=== PATIENT | female | born 1995 ===

== ENCOUNTER 2018-11-10 00:02 | Inpatient (IN) | payer MEDICAID ==
[2018-11-10 01:11] VITALS: BMI 33.5
[2018-11-10] MEDS ORDERED: Lactated Ringer's 1,000 ML IV ONE (01:11)
[2018-11-10] MEDS ORDERED: Oxytocin 30 UNIT 30 UNITS/500 ML BAG IV ONE ×3 (01:13→21:26)
[2018-11-10] MEDS ORDERED: OXYTOCIN/0.9 % NS 20 UNIT/1,000 ML BAG IV SCH (01:15)
--- NOTE | 2018-11-10 01:29 | OBADHP ---
Datetime: 11/10/2018 01:20 Admit Comment, IP Provider: 23 year old with IUP @ 40+5 weeks based on LMP of 01/29/18 presents to [facility] because of contractions and loss of mucus plug at 5 am one day prior to admission. Patient re ports she has also been having headache and changes in vision every morning. Denies chest pain, dyspn ea, dysuria, dizziness. Ros negative except for stated above in HPI ObHx: [place]; noted hypertensive after 33 weeks but not prescribed any medication PMH: Denies PSH: Denies Medications: PNV Allergies: Denies Social: Denies tobacco, alcohol, drug use Family History: Not significant Labs: HIV: negative; HbsAg: negative; GBS: negative; Rubella: Immune; Gc/Cl: negative; RPR: non-re active; ABO: A+; antibody: negative PHYSICAL EXAM BP: 142/88 HR: 86 repeat: 148/80 HR: 82 Heart: s1 and s2 appreciated on exam. No murmurs, gallops or rubs. Lungs: clear bilaterally, no rhonchi or crackles Abdomen: soft, non-tender, gravid, +BS Extremities: +2 radial pulses bilaterally. No lower extremity edema bilaterally. SVE: 2cm/ 70% effaced/ -2 station Bedside ultrasound: cephalic presentation ASSESSMENT/PLAN: 23 year old with IUP @ 40+5 weeks based on LMP of 01/29/18 admitted for labor and elevated BP. - Admit Labor and delivery - CBC and type and screen - NST- reactive - Category 1 - PIH labs Discussed with Dr. Pati Stanford, PGY 1 OB Hospitalist Addendum: Pt seen and examined by me. Agree w/ above. 23 yo G1 at 40+5 wks c/o ct xns since 5am , reports a BUCIO now and reports seeing stars in am. Pt has had elevated since 33 weeks. VE 2/70/-2 at 0107. Pt to be admitted to L_D. PEC labs ordered. FHT reactive. GBS negative. (E S) Pelvic Type - PN: Adequate Extremities - PN: Normal Abdomen - PN: Normal Back - PN: Normal Breast - PN: Not Done Lungs - PN: Normal Heart - PN: Normal Thyroid - PN: Normal Neurologic - PN: Normal HEENT - PN: Normal General - PN: Normal FHR - Baseline A Provider: 130 Vital Signs Provider: Reviewed Vital Signs Provider Details: elevated BP IP Chief Complaint: Uterine contractions; Maternal discomfort NICHD Variability Prov Fetus A: Moderate 6-25bpm NICHD Accel Fetus A IP Provider: 15X15 FHR Category Provider Fetus A: Category I NICHD Decel Fetus A IP Provider: None Dilatation, Provider: 2 Effacement, Provider: 70 Station, Provider: -2 Genitourinary Exam: Normal DTRs - PN: Normal EGA AdmitDate IP: 40.5 IP Adm Impression: Term, intrauterine IP Admit Plan: Admit to unit; Initiate labor protocol
[2018-11-10] MEDS: Lactated Ringer's 1,000 ML IV SCH ×2 (01:30→11:06)
[2018-11-10 01:53] LABS: BASO % 0.3 % (0.0-2.0); EOS # 0.1 K/uL (0.0-0.7); EOS % 0.9 % (0.0-4.0); HEMOGLOBIN 13.8 g/dL (12.0-16.0); LYMPH # 2.1 K/uL (1.0-4.3); LYMPH % 21.2 % (20.0-40.0); MEAN CELL VOLUME 91.1 fl (81.0-99.0); MEAN CORPUSCULAR HEMOGLOBIN 30.9 pg (27.0-31.0); MEAN PLATELET VOLUME 10.8 fl (7.2-11.7); MONO # 0.8 K/uL (0.0-0.8); MONO % 8.4 % (0.0-10.0); NEUT # 6.9 K/uL (1.8-7.0); NEUT % 69.2 % (50.0-75.0); RBC 4.47 Mil/uL (3.80-5.20); RED CELL DISTRIBUTION WIDTH 14.3 % (11.5-14.5)
[2018-11-10 02:05] LABS: ALB/GLOB RATIO 1.2 (1.0-2.1); ALBUMIN 4.1 g/dL (3.5-5.0); ALT/SGPT 32 U/L (9-52); AST/SGOT 17 U/L (14-36); BLOOD UREA NITROGEN 4 mg/dl (7-17); CALCIUM 9.5 mg/dL (8.4-10.2); GFR NON-AFRICAN AMERICAN > 60; URIC ACID 2.9 mg/Dl (2.2-7.5)
[2018-11-10 04:32] LABS: SQUAMOUS EPITHIAL 4 /hpf (0-5); URINE BACTERIA RARE (<OCC); URINE BILIRUBIN NEGATIVE (NEGATIVE); URINE BLOOD NEGATIVE (NEGATIVE); URINE CLARITY CLOUDY (Clear); URINE COLOR YELLOW (YELLOW); URINE GLUCOSE (UA) NEG (NEGATIVE); URINE LEUKOCYTE ESTERASE NEG Leu/uL (Negative); URINE PROTEIN NEGATIVE (NEGATIVE); URINE UROBILINOGEN 0.2-1.0 mg/dL (0.2-1.0)
[2018-11-10] MEDS ORDERED: Nalbuphine HCL 10 mg/ml Ampule IVP PRN ×3 (05:54→11:15)
[2018-11-10] MEDS ORDERED: Nalbuphine 20 mg/ml Inj (10 ml) ONE (06:17)
--- NOTE | 2018-11-10 11:46 | OBPN ---
Datetime: 11/10/2018 09:39 IP Progress Impression: Normal progression of labor IP Informed Consent Obtain: Vaginal Delivery IP Procedures: Sterile Vag Exam IP Progress Plan: Continue present management; Augmentation Membranes, Provider: Intact Contraction Comments Provider: Irregular FHR - Baseline A Provider: 125 IP Progress Note Comment: Patient evaluated, patient reported having some pain. Reviewed pain option s patient decided did not want pain medication at this time VE=3/50/-3 FHR = 125 mod alan, +Accels, no decels TOCO = ctxning q irregularly A/P 1. Patient progressing, now 3cm, will start Pitocin for augmentation 2. Patient highest BP = 140s/80s. Patient denies S/S of worsening gestational HTN or pre-eclampsia . WIll follow up on labs. Continue to monitor and treat if over 160/110 3. Patient offered pain medication and declined at this time Vital Signs Provider: Reviewed; Within Normal Limits NICHD Accel Fetus A IP Provider: [id number] NICHD Variability Prov Fetus A: Moderate 6-25bpm Dilatation, Provider: 3 Effacement, Provider: 50 Station, Provider: -3 Datetime: 11/10/2018 01:20 Vital Signs Provider Details: elevated BP FHR Category Provider Fetus A: Category I NICHD Decel Fetus A IP Provider: None
[2018-11-10] MEDS ORDERED: Bupivacaine HCl 0.5% PF (30 ml) Inj ONE (13:21)
[2018-11-10] MEDS ORDERED: Fentanyl/Bupivacaine HCl 250 ML EPI ONE (13:51)
--- NOTE | 2018-11-10 15:36 | OBPN ---
Datetime: 11/10/2018 15:07 IP Progress Impression: Normal progression of labor IP Informed Consent Obtain: Vaginal Delivery IP Procedures: Sterile Vag Exam IP Progress Plan: Continue present management Membranes, Provider: Intact IP Progress Note Comment: S: Patient evaluated bedside. Currently has epidural for pain management a nd reports being very comfortable, in no distress. O: PE: Gen: lying comfortably in bed s/p epidural SVE: 5/75/-1, no vaginal bleeding or discharge noted on exam FHR = 130, moderate variability, accelerations present (15x15), no decelerations A_P: -Patient progressing appropriately: 5cm, 75% effaced, -1 station -Pitocin started at 7am; 10 units thus far, tolerating well -Continue to monitor BP and plan to treat if BP >160/[address] Josiah Castro PGY1 Addendum by Dr. Rahman: I have evaluated the patient independently and I agree with the above. VE=5 -6/70/-1, AROM, clear fluid. FHR = 130 mod alan, +accels, early decels noted. TOCO = ctxning q 2-3 min s, Pitocin @ 10mu/min. Continue Pitocin for augmentation
--- NOTE | 2018-11-10 20:47 | OBPN ---
Datetime: 11/10/2018 19:42 IP Progress Impression: Normal progression of labor IP Informed Consent Obtain: Vaginal Delivery IP Procedures: Sterile Vag Exam IP Progress Plan: Continue present management Membranes, Provider: Ruptured Contraction Comments Provider: q 2-3 mins FHR - Baseline A Provider: 125 IP Progress Note Comment: Patient evaluated by myself and the RN - feeling increased pelvic pressure VE=9/100/-1 FHR = 125 mod alan, +accels, early decels TOCO = ctxning q 2-3 mins, Pit @ 14 mu/min A/P 1. patient almost in second stage of labor, 9cm. Continue Pitocin for augmentation 2. CEFM and TOCO 3. Re-evalaute when feeling stronger pelvic pressure Vital Signs Provider: Reviewed; Within Normal Limits NICHD Accel Fetus A IP Provider: 15X15 NICHD Variability Prov Fetus A: Moderate 6-25bpm Dilatation, Provider: 9 Effacement, Provider: 100 Station, Provider: -1 NICHD Decel Fetus A IP Provider: Early
[2018-11-11] MEDS ORDERED: Benzocaine/Menthol SPRAY TOP PRN ×2 (00:04→04:04)
[2018-11-11] MEDS ORDERED: Oxycodone/Acetaminophen 5/325 mg Tab PO PRN ×4 (00:04→04:04)
[2018-11-11] MEDS ORDERED: ceFAZolin 2 GM in Sodium Chloride 0.9% 100 ML IVPB ONE (00:05)
--- NOTE | 2018-11-11 00:15 | OBDS ---
DELIVERY PERSONNEL Delivery Doctor: Camille Rahman MD Dressed Poultry Grader: Nell Levi RN Anesthesiologist: Francine Martinez MD Resident: Dr. Collado,OBR MATERNAL INFORMATION Delivery Anesthesia: Epidural Medications in Delivery: pitocin 30 units/500 ml Placenta Cultured: No Maternal Complications: None Provider Comments: of live male over intact perineum in ALEXA presentation followed by nadine reyna and rest of infant, placed on mother's chest, mouth and nose suctioned, cord clamped a nd cut, cord blood obtained, placenta extracted manually, fundus firm, EBL = 300ml, bilateral labial abrasions repaired with 3-0 vicryl rapide LABOR SUMMARY EDC: 11/05/2018 00:00 No. Babies in Womb: 1 Attempted: No Labor Anesthesia: Epidural LABOR INFORMATION Reason for Induction: Gest. HTN/PreEclampsia/Eclampsia Onset of Labor: 11/09/2018 17:00 Complete Dilatation: 11/11/2018 22:40 Oxytocin: Induction Group B Beta Strep: Negative Antibiotics # of Doses: 0 Antibiotics Time of Last Dose: n/a Steroids Given: None Reason Steroids Not Administered: Not Applicable MEMBRANES Membranes Rupture Method: Artificial Rupture of Membranes: 11/10/2018 15:19 Length of Rupture (hrs): -3.55 Amniotic Fluid Color: Clear Amniotic Fluid Amount: Moderate Amniotic Fluid Odor: Normal STAGES OF LABOR Stage 1 hrs: 53 Stage 1 min: 40 Stage 2 hrs: -34 Stage 2 min: -54 Stage 3 hrs: 12 Stage 3 min: 6 Total Time in Labor hrs: 30 Total Time in Labor min: 52 VAGINAL DELIVERY Episiotomy: None Laceration Repair: Yes Initial Vag Sponge Count: 15 Final Vag Sponge Count: 15 Initial Vag Sharps Count: 1 Final Vag Sharps Count: 1 Sponge Count Correct: Yes Sharps Count Correct: Yes BABY A INFORMATION Infant Delivery Date/Time: 11/10/2018 11:46 Method of Delivery: Vaginal Born in Route : No : N/A Forceps: N/A Vacuum Extraction: N/A Shoulder Dystocia : No SHOULDER DYSTOCIA BABY A Delivery Date/Time: 11/10/2018 11:46 PRESENTATION/POSITION BABY A Presentation: Cephalic Cephalic Presentation: Vertex Breech Presentation: N/A PLACENTA INFORMATION BABY A Placenta Delivery Time : 11/10/2018 23:52 Placenta Method of Delivery: Manual Removal Placenta Status: Delivered SCORES BABY A Heart Rate 1 min: >100 bpm Resp Effort 1 min: Good Cry Reflex Irritability 1 min: Cough or Sneeze or Pulls Away Muscle Tone 1 min: Active Motion Color 1 min: Body [place], Extremities Blue Resuscitation Effort 1 min: N/A SCORE 1 MIN: 9 Heart Rate 5 min: >100 bpm Resp Effort 5 min: Good Cry Reflex Irritability 5 min: Cough or Sneeze or Pulls Away Muscle Tone 5 min: Active Motion Color 5 min: Body [place], Extremities Blue Resuscitation Effort 5 min: N/A SCORE 5 MIN: 9 INFORMATION BABY A Gestational Age at Delivery: 40.5 Gestational Status: Term Outcome : Liveborn Condition : Stable Infant Sex: Male (Annotations: Data stored by [facility] on behalf of user) IDENTIFICATION/MEDS BABY A ID Band Location: Left Leg; Left Arm WEIGHT/LENGTH BABY A Infant Birthweight (gms): 3850 Infant Weight (lb): 8 Weight (oz): 8 CORD INFORMATION BABY A No. Cord Vessels: 3 Nuchal Cord : N/A Cord Blood Taken: Yes Suction: Mouth; Nose ASSESSMENT BABY A Complications: None Physical Findings at Delivery: Caput Succedaneum Infant Respirations: Appears Normal Horse Race Timer/ALS Called : No Transferred To: Remains with Mother
[2018-11-11 07:26] LABS: BASO % 0.1 % (0.0-2.0); EOS % 0.1 % (0.0-4.0); HEMOGLOBIN 12.3 g/dL (12.0-16.0); LYMPH # 1.1 K/uL (1.0-4.3); LYMPH % 6.8 % (20.0-40.0); MEAN CELL VOLUME 91.5 fl (81.0-99.0); MEAN CORPUSCULAR HEMOGLOBIN 30.6 pg (27.0-31.0); MEAN CORPUSCULAR HGB CONC 33.5 g/dL (33.0-37.0); MEAN PLATELET VOLUME 10.7 fl (7.2-11.7); MONO # 1.3 K/uL (0.0-0.8); MONO % 7.7 % (0.0-10.0); NEUT % 85.3 % (50.0-75.0); PLATELET COUNT 141 K/uL (130-400); RBC 4.02 Mil/uL (3.80-5.20); RED CELL DISTRIBUTION WIDTH 14.4 % (11.5-14.5); WHITE BLOOD COUNT 16.5 K/uL (4.8-10.8)
[2018-11-11] MEDS: Multivitamin With Minerals Tab PO SCH (08:26)
[2018-11-11 09:00] LABS: BANDS 8 % (0-2); LYMPHOCYTE 7 % (20-50); MONOCYTE 8 % (0-10); NEUTROPHIL 77 % (42-75); PLATELET ESTIMATE NORMAL (NORMAL); TOTAL CELLS COUNTED 100
[2018-11-11] MEDS ORDERED: Multivitamin With Minerals Tab PO SCH (09:00)
--- NOTE | 2018-11-11 09:23 | OBPPN ---
Datetime: 11/11/2018 05:46 PP Pain Prov: Within normal limits PP Nausea Prov: Denies PP Flatus Prov: Yes PP BM Prov: No PP Breasts Prov: Not Done PP Heart Prov: Normal PP Lungs Prov: Normal PP Abdomen/Uterus Prov: Normal PP Lochia Prov: Normal PP Vulva/Perineum Prov: Normal PP CVA Tenderness Prov: Not Done PP Extremities Prov: Normal PP C/S Incision Prov: Not Applicable PP Progress Prov: Normal PP Impression Prov: Normal progression; Increased temperature PP Plan Prov: Continue present management PP Progress Note Prov: S: 23 yo s/p on 11/10/18, PPD1. Pt was seen and examined at [facility] e this AM. Overnight, patient had one episode of fever of 102.4 @ 0300- given tylenol at that time. P t given one dose of Ancef 2gram after delivery given manual extraction of placenta. Pain is minimal. Ambulating and tolerating PO diet without difficulty. Breast feeding exclusively. Lochia < menses. +F latus/- BM. Denies dizziness, orthostatic changes, changes in vision, palpitations, chest pain, feve r, chills, diarrhea, nausea and vomiting. O: VS: Stable overnight GEN: NAD Cardio: S1S2, no murmurs Lungs: clear breath sounds b/l, no wheezing Abdomen: BS+, appropriate tenderness to palpation. Uterus is firm and at the level of the umbilic us. EXT: No edema, calves non-tender NEURO/PSYCH: AAOx3, no grossly focal deficits, preserved affect and mood. H/H: aCBC: 13.8/40.7 pCBC: pending Assessment/Plan: 23 yo s/p on 11/10/18, PPD1. Pt remains afebrile, tolerating pain. -Regular diet -Anticipate discharge 11/12 -Continue with current management -Encourage and ambulating -Colace 100mg BID -Ibuprofen 600mg q6 for pain Toya Stanford, PGY 1 The patient was seen with the resident and agree with the note IP PP Procedures: None Vital Signs Provider PP: Reviewed Vital Signs Provider Details PP: Fever at 0310- tylenol given
[2018-11-12] MEDS: Multivitamin With Minerals Tab PO SCH (08:14)
[2018-11-12 18:15] VITALS: BP 118/64; PULSE 85; RESP 20; TEMP 98; O2SAT 95
== END 2018-11-12 12:36 | disposition home or self-care (01) | DRG 372 ==
LOC: H.EROB2 00:02 → H.L&D 01:11 → H.OB/GYN 11-11 03:05
PROVIDERS: ADMIT Obstetrics & Gynecology; ATTEND Obstetrics & Gynecology
PROC: 10E0XZZ Delivery of Products of Conception, External Approach (ICD-10-PCS; principal; 2018-11-10)
PROC: 10907ZC Drainage of Amniotic Fluid, Therapeutic from Products of Conception, Via Natural or Artificial Opening (ICD-10-PCS; 2018-11-10)
PROC: 4A1HXCZ Monitoring of Products of Conception, Cardiac Rate, External Approach (ICD-10-PCS; 2018-11-10)
DX: O13.4 Gestational [pregnancy-induced] hypertension without significant proteinuria, complicating childbirth (principal); O48.0 Post-term pregnancy; Z3A.40 40 weeks gestation of pregnancy; Z37.0 Single live birth